=== PATIENT | female | born 1980 | race Hispanic/Latino ===

== ENCOUNTER 2017-12-18 05:01 | Emergency (ER) | payer OTHER ==
[~2017-12-18] VITALS: Ht 165.1 cm; Wt 86.2 kg
[2017-12-18 05:17] VITALS: BP 136/76
--- NOTE | 2017-12-18 05:41 | ED NECK/BACK PAIN COMPLAINT ---
History of Present Illness General Chief Complaint: Lower Extremity Injury Stated Complaint: PULLED BACK MOVING PER PT Source: patient Exam Limitations: no limitations Vital Signs & Intake/Output Vital Signs & Intake/Output Vital Signs Date Time Temp Pulse Resp B/P B/P Pulse O2 O2 Flow FiO2 Mean Ox Delivery Rate 12/18 0517 97.9 90 16 136/76 97 Room Air Allergies Coded Allergies: MDX - Codeine (From TYLENOL W/CODEINE #3) (ITCHY RASH 02/16/12) Reconcile Medications Cyclobenzaprine HCl 10 MG TABLET 1 TAB PO 4 TIMES/DAY PRN MUSCLE SPASM Ibuprofen 800 MG TABLET 1 TAB PO TID PRN pain Oxycodone HCl/Acetaminophen (Percocet 5-325 MG Tablet) 5 MG-325 MG TABLET 1 TAB PO 4XDP PRN PAIN TEN...[id number] Triage Note: SEE NURSES NOTES Triage Nurses Notes Reviewed? yes Onset: Gradual Duration: day(s): Timing: recent history Quality/Severity: moderate Location: lumbar spine Radiation: none Context: lifting Method of Injury: twisted Loss of Consciousness: no loss of consciousness Modifying Factors: movement, rest Associated Symptoms: muscle spasm : No Patient currently breastfeeds: No HPI: 37 yo woman in prior good health presents with right lower lumbar muscle spasm and pain x 2 days. "I was helping my mom to move furniture... I felt a pop and I have really bad back pain." She notes no weakness, numbness, bowel or bladder issues. She is otherwise well. Past History Travel History Traveled to [place] past 21 day No Medical History Any Pertinent Medical History? see below for history Tetanus Vaccine: 06/16/12 Surgical History Surgical History: non-contributory Psychosocial History What is your primary language Serbian Tobacco Use: Current Daily Use Daily Tobacco Use Amount/Type: =< 4 Cigarettes daily ETOH Use: denies use Illicit Drug Use: denies illicit drug use Family History Hx Contributory? No Review of Systems Review of Systems Constitutional: Reports: no symptoms. Eyes: Reports: no symptoms. Ears, Nose, Throat, Mouth: Reports: no symptoms. Respiratory: Reports: no symptoms. Cardiovascular: Reports: no symptoms. Gastrointestinal/Abdominal: Reports: no symptoms. Musculoskeletal: Reports: no symptoms. Skin: Reports: no symptoms. Neurological/Psychological: Reports: no symptoms. All Other Systems: Reviewed and Negative Physical Exam Physical Exam General Appearance: well developed/nourished, mild distress Head: atraumatic Eyes: Bilateral: normal appearance. Ears, Nose, Throat, Mouth: hearing grossly normal Neck: normal inspection, supple, full range of motion, normal alignment Respiratory: normal breath sounds Cardiovascular: regular rate/rhythm Gastrointestinal: soft, non-tender Back: normal inspection, muscle spasm, no vertebral tenderness Extremities: normal range of motion Neurologic/Psych: awake, alert, oriented x 3, normal mood/affect Skin: intact, normal color, warm/dry Comments: strength, light touch, dtr's are intact bilaterally. Core Measures CVA/TIA Diagnosis: No Progress Differential Diagnosis: herniated disc, myofascial strain, sciatica Plan of Care: Current Medications Sig/Telma Start time Last Medication Dose Stop Time Status Admin Cyclobenzaprine HCl 10 MG ONCE ONE 12/18 599 UNVr (Flexeril 10MG Tab) 12/18 600 Ibuprofen 800 MG ONCE ONE 12/18 599 UNVr (Motrin) 12/18 600 Oxycodone/ 1 TAB ONCE ONE 12/18 599 UNVr Acetaminophen 12/18 600 (Percocet) Departure Departure Disposition: HOME OR SELF CARE Condition: Stable Clinical Impression Primary Impression: Back pain Secondary Impressions: Muscle spasm Referrals: Patient Has No Primary Care Dr (PCP/Family) Departure Forms: Customer Survey General Discharge Information Prescriptions: Current Visit Scripts Oxycodone HCl/Acetaminophen (Percocet 5-325 MG Tablet) 1 TAB PO 4XDP PRN PAIN #10 TAB TEN...[id number] Cyclobenzaprine HCl 1 TAB PO 4 TIMES/DAY PRN MUSCLE SPASM #30 TAB Ref 1 Ibuprofen 1 TAB PO TID PRN pain #30 TAB Comments discussed at length... no neurologial compromise... discussed supportive measures and close follow up.
[2017-12-18] MEDS ORDERED: IBUPROFEN800 M1 PO (05:55)
[2017-12-18] MEDS ORDERED: PERCOCET 5-3251 EACH PO (05:55)
[2017-12-18] MEDS ORDERED: CYCLOBENZAPRINE10 M1 PO (05:55)
== END 2017-12-18 06:01 ==
LOC: ERH 05:01
DX: M54.5 Low back pain (principal); M62.830 Muscle spasm of back